=== PATIENT | female | born 1925 | race Caucasian/White ===

== ENCOUNTER → 2017-02-22 | Outpatient (CLI) | payer OTHER ==
[~2017-02-22] MED LIST: CALCIUM 600 +1 EAC1 PO; FISH OIL 1,4001 EACH PO; LEVOXYL88 MCG PO; LOW DOSE ASPIRI81 M1 PO; LUMIGAN2.5 M1 OP; MOBIC15 MG PO; MULTIVITAMINS; NAPROSYN500 MG PO; OXYBUTYNIN 5 MG5 M1 PO; SIMVASTATIN20 MG PO; TRAMADOL HCL50 MG PO; TRAMADOL-ACETA1 EACH PO; TRUSOPT OCUMETE10 M1 OP; VITAMIN B-12100 MC1 PO
--- NOTE | ~2017-02-22 | 2DMMODE ---
[facility] [address] [place] [address] 2 D/M-MODE ECHOCARDIOGRAM Name: THOM YE Room #: REG [facility]#: [id number] Admission: 02/22/17 Attend Phys: Joe Christie MD Discharge: Date of : [birth year] Date of Service: 02/22/17 1411 Report #: [id number] THIS REPORT FOR: //name// APPROVED REPORT Study performed: 02/22/2017 13:13:11 EXAM: Comprehensive 2D, Doppler, and color-flow Echocardiogram Patient Location: Echo lab Status: routine BSA: 1.79 BP: 165/80 mmHg Other Information Study Quality: Adequate Indications CAD 2D Dimensions RVDd: 28.96 mm LVEF(%): 69.48 (>50%) IVSd: 9.57 (7-11mm) LVOT Diam: 20.84 (18-24mm) LVDd: 33.96 mm PWd: 10.88 (7-11mm) Ascending Ao: 25.02 (22-36mm) LVDs: 21.01 (25-40mm) Aortic Root: 25.71 mm IVC: 19.00 mm Arceo's LVEF: 69.48 % Volumes Left Atrial Volume (Systole) Single Plane 4CH: 57.00 mL Single Plane 2CH: 28.07 mL LA ESV Index: 25.00 mL/m2 Aortic Valve AoV Peak Mykel.: 1.07 m/s AO Peak Gr.: 4.62 mmHg LVOT Max P.24 mmHg LVOT Max V: 0.90 m/s SRIKANTH Vmax: 2.85 cm2 Mitral Valve E/A Ratio: 1.3 MV Decel. Time: 225.36 ms MV E Max Mykel.: 1.40 m/s [facility] [address] [place] [address] 2 D/M-MODE ECHOCARDIOGRAM Name: THOM YE Room #: [facility]#: [id number] Admission: 02/22/17 Attend Phys: Joe Christie MD Discharge: Date of : [birth year] Date of Service: 02/22/17 1411 Report #: [id number] MV A Mykel.: 1.07 m/s MV PHT: 65.35 ms IVRT: 83.04 ms Pulmonary Valve PV Peak Mykel.: 1.08 m/s PV Peak Gr.: 4.63 mmHg Pulmonary Vein P Vein S: 0.74 m/s P Vein A: 0.27 m/s P Vein D: 0.66 m/s P Vein A Dur.: 128.0 msec P Vein S/D Ratio: 1.12 Tricuspid Valve TR Peak Mykel.: 3.26 m/s RAP Estimate: 5.00 mmHg TR Peak Gr.: 42.49 mmHg Left Ventricle The left ventricle is normal size. There is normal left ventricular wall thickness. The left ventricular systolic function is normal. The left ventricular ejection fraction is within the normal range. LVEF is 60-65%. Grade II - pseudonormal filling dynamics. Right Ventricle The right ventricle is normal size. The right ventricular systolic function is normal. Atria The left atrium size is normal. The right atrium size is normal. Aortic Valve The aortic valve is normal in structure. Mild aortic regurgitation. There is no aortic valvular stenosis. Mitral Valve The mitral valve is normal in structure. Trace mitral regurgitation. No evidence of mitral valve stenosis. Tricuspid Valve The tricuspid valve is normal in structure. There is mild tricuspid regurgitation. The right atrial pressure is estimated at 5 mmHg. PAP is estimated at 48 mmHg. Pulmonic Valve The pulmonary valve is normal in structure. Moderate pulmonic regurgitation. [facility] [address] [place] [address] 2 D/M-MODE ECHOCARDIOGRAM Name: THOM YE Room #: REG [facility]#: [id number] Admission: 02/22/17 Attend Phys: Joe Christie MD Discharge: Date of : [birth year] Date of Service: 02/22/17 1411 Report #: [id number] Great Vessels The aortic root is normal in size. IVC is normal in size and collapses >50% with inspiration. Pericardium There is no pericardial effusion. <Conclusion> The left ventricle is normal size. The left ventricular systolic function is normal. The right ventricle is normal size. The left atrium size is normal. Mild aortic regurgitation. Trace mitral regurgitation. There is mild tricuspid regurgitation. The right atrial pressure is estimated at 5 mmHg. PAP is estimated at 48 mmHg. <ELECTRONICALLY SIGNED> By: Joe Christie MD 02/22/171410 10 10 Joe Christie MD /INF
== END ==
LOC: CV 10:10
DX: I25.10 Atherosclerotic heart disease of native coronary artery without angina pectoris (principal)